=== PATIENT | male | born 1975 | race Caucasian/White ===

== ENCOUNTER 2017-06-01 22:09 | Emergency (ER) | payer OTHER ==
[2017-06-01] MEDS ORDERED: ONDANSETRON PF 4 MG/2 ML VIAL. IV (22:45)
[2017-06-01] MEDS ORDERED: IV NORMAL SALINE 1000ML BAG 1,000 ML IV (22:45)
[2017-06-01 22:50] LABS: ADD MAN DIFF? NO
[2017-06-01 22:53] LABS: BASO # 0.1 x10^3/uL (0.0-0.2); BASO % 1 % (0-3); EOS # 0.1 x10^3/uL (0.0-0.7); EOS % 1 % (0-3); HEMATOCRIT 42.5 % (39.0-53.0); HEMOGLOBIN 14.9 g/dL (13.0-17.5); LYMPH # 1.5 x10^3/uL (1.0-4.8); LYMPH % 14 % (24-48); MEAN CORPUSCULAR HEMOGLOBIN 34 pg (25-35); MEAN CORPUSCULAR HGB CONC 35 g/dL (31-37); MEAN CORPUSCULAR VOLUME 96 fL (79-100); MONO % 10 % (0-9); NEUT % 75 % (31-73); PLATELET COUNT 326 x10^3/uL (140-400); RED BLOOD COUNT 4.44 x10^6/uL (4.30-5.70); RED CELL DISTRIBUTION WIDTH 14.5 % (11.5-14.5); WHITE BLOOD COUNT 10.7 x10^3/uL (4.0-11.0)
[2017-06-01 23:01] LABS: ANION GAP 9 (6-14); BLOOD UREA NITROGEN 14 mg/dL (8-26); BUN/CREATININE RATIO 14 (6-20); CALCIUM 8.7 mg/dL (8.5-10.1); CARBON DIOXIDE 27 mmol/L (21-32); CHLORIDE 102 mmol/L (98-107); GFR 82.3; GLUCOSE 108 mg/dL (70-99); POTASSIUM 3.8 mmol/L (3.5-5.1); SODIUM 138 mmol/L (136-145)
[2017-06-01 23:06] LABS: ALBUMIN 3.7 g/dL (3.4-5.0); ALK PHOS 67 U/L (46-116); ALT (SGPT) 26 U/L (16-63); AST (SGOT) 18 U/L (15-37); LIPASE 138 U/L (73-393); TOTAL BILIRUBIN 0.7 mg/dL (0.2-1.0); TOTAL PROTEIN 7.3 g/dL (6.4-8.2)
[2017-06-01] MEDS: IV NORMAL SALINE 1000ML BAG 1,000 ML IV ×2 (23:13→23:15)
[2017-06-01] MEDS ORDERED: VANCOMYCIN PER PHARMACY MC (23:15)
[2017-06-01] MEDS: ACETAMINOPHEN 650 MG SUPP.RECT. PR (23:15)
[2017-06-01] MEDS ORDERED: CONTRAST GIVEN MC (23:15)
[2017-06-01 23:19] LABS: LACTIC ACID 1.4 mmol/L (0.4-2.0)
[2017-06-01] MEDS: IOHEXOL 300 MG/ML 100ML VIAL. IV (23:27)
[2017-06-01] MEDS: VANCOMYCIN 2 GM in IV 1/2 NORMAL SALINE 500 ML IV (23:33)
[2017-06-02 00:46] LABS: BILIRUBIN,URINE NEGATIVE (NEG); CLARITY,URINE CLEAR; COLOR,URINE YELLOW; GLUCOSE,URINE NEGATIVE (NEG); NITRITE,URINE NEGATIVE (NEG); PROTEIN,URINE NEGATIVE (NEG-TRACE); UROBILINOGEN,URINE 0.2 mg/dL (0.2 mg/dL)
[2017-06-02 00:54] LABS: BACTERIA,URINE 0 /HPF (0-FEW); RBC,URINE OCC /HPF (0-2); SQUAMOUS EPITHELIAL CELL,UR FEW /LPF; WBC,URINE OCC /HPF (0-4)
[2017-06-02] MEDS ORDERED: CLINDAMYCIN HCL 150 MG CAPSULE. PO (01:15)
[2017-06-02] MEDS: CLINDAMYCIN HCL 150 MG CAPSULE. PO (01:41)
[2017-06-02] MEDS: ACETAMINOPHEN 500 MG TABLET PO (01:41)
== END 2017-06-02 01:34 | disposition home or self-care (01) ==
LOC: ER 06-02 01:34
DX: G89.18 Other acute postprocedural pain (principal); R10.9 Unspecified abdominal pain; L03.90 Cellulitis, unspecified; R50.9 Fever, unspecified
CPT/HCPCS: 36415; 74177; 80053; 81001; 83605; 83690; 85025; 87040; 96361; 96365; 99285-25; J3370; J7030; Q9967